=== PATIENT | male | born 1970 | race Caucasian/White ===

== ENCOUNTER 2021-05-07 09:10 | Emergency (ER) | payer OTHER ==
--- NOTE | 2021-05-07 09:52 | EDM.PDOC ---
ED HPI GENERAL MEDICAL PROBLEM - General Chief Complaint: Abdominal Pain Stated Complaint: ABDOMINAL PAIN Time Seen by Provider: 05/07/21 09:51 - History of Present Illness INITIAL COMMENTS - FREE TEXT/NARRATIVE: 50-year-old male presents the emergency room with abdominal pain. Patient has a 2-3 history of worsening abdominal pain. This is mostly noted in the lower abdomen. This is not associated with any nausea or vomiting. However he has not had a reasonable BM in 3 days he is trying MiraLAX and other medications for potential constipation. Patient has a significant history of diverticulitis on the left side in the past he has had a single episode this was treated with antibiotics as an outpatient. He has no history of abdominal surgeries. He is passing gas no significant nausea or vomiting. The patient is visiting the area from [facility] and he participates in a band. Lower Abdomen Pain Score (Numeric/FACES): 9 - Related Data Allergies Allergy/AdvReac Type Severity Reaction Status Date / Time No Known Allergies Allergy Verified 05/07/21 09:31 Home Meds: Home Meds Ciprofloxacin HCl [Cipro] 500 mg PO BID #20 tablet 05/07/21 [Rx] metroNIDAZOLE [Flagyl] 500 mg PO Q8H #30 tab 05/07/21 [Rx] Past Medical History Gastrointestinal History: Reports: Diverticulosis Endocrine/Metabolic History: Reports: Obesity/BMI 30+ - Infectious Disease History Infectious Disease History: Reports: Novel Coronavirus - Past Surgical History Musculoskeletal Surgical History: Reports: Arthroscopic Knee Other Musculoskeletal Surgeries/Procedures:: right and left arthroscopic knee Social & Family History - Tobacco Use Tobacco Use Status *Q: Current Every Day Tobacco User Years of Tobacco use: 5 Packs/Tins Daily: 0.2 - Recreational Drug Use Recreational Drug Use: No ED ROS GENERAL - Review of Systems Review Of Systems: See Below Constitutional: Reports: No Symptoms Respiratory: Reports: No Symptoms Cardiovascular: Reports: No Symptoms GI/Abdominal: Reports: Abdominal Pain, Constipation. Denies: Diarrhea, Nausea, Vomiting : Reports: No Symptoms, Urinary Retention Musculoskeletal: Reports: Muscle Pain Neurological: Reports: No Symptoms ED EXAM, GENERAL - Physical Exam Exam: See Below Exam Limited By: No Limitations General Appearance: Alert, No Apparent Distress Head: Atraumatic, Normocephalic Neck: Normal Inspection, Supple, Non-Tender. No: Lymphadenopathy (L), Lymphadenopathy (R) Respiratory/Chest: No Respiratory Distress, Lungs Clear, Normal Breath Sounds Cardiovascular: Regular Rate, Rhythm, No Edema, No Murmur GI/Abdominal: Normal Bowel Sounds, Other (He has significant discomfort more so in the right lower quadrant compared to the left lower quadrant but it is across the lower abdomen. He has rebound tenderness.) Back Exam: Normal Inspection. No: CVA Tenderness (L), CVA Tenderness (R) Neurological: Alert, Oriented, Normal Cognition Course - Vital Signs Last Recorded V/S: Last Vital Signs Temp 36.3 C 05/07/21 09:26 Pulse 74 05/07/21 09:26 Resp 16 05/07/21 09:26 BP 149/92 H 05/07/21 09:26 Pulse Ox 97 05/07/21 09:26 - Orders/Labs/Meds Orders: Active Orders 24 hr Category Date Time Status Lactated Ringers [Ringers, Lactated] 1,000 ml Med 05/07/21 10:00 Active IV ASDIRECTED Sodium Chloride 0.9% [Saline Flush] Med 05/07/21 11:06 Active 10 ml FLUSH ONETIME PRN Medication Orders Lactated Ringer's (Ringers, Lactated) 1,000 mls @ 150 mls/hr IV ASDIRECTED PATT Last Admin: 05/07/21 10:18 Dose: 150 mls/hr Documented by: TIANNA Sodium Chloride (Sodium Chloride 0.9% 10 Ml Syringe) 10 ml FLUSH ONETIME PRN PRN Reason: IV FLUSH Last Admin: 05/07/21 11:49 Dose: 10 ml Documented by: DESI Labs: Laboratory Tests 05/07/21 05/07/21 Range/Units 10:10 10:10 WBC 10.91 H (4.23-9.07) K/mm3 RBC 4.95 (4.63-6.08) M/mm3 Hgb 15.0 (13.7-17.5) gm/dl Hct 43.8 (40.1-51.0) % MCV 88.5 (79.0-92.2) fl MCH 30.3 (25.7-32.2) pg MCHC 34.2 (32.2-35.5) g/dl RDW Std Deviation 45.1 H (35.1-43.9) fL Plt Count 176 (163-337) K/mm3 MPV 10.6 (9.4-12.3) fl Neutrophils % (Manual) 75 H (40-60) % Band Neutrophils % 0 (0-10) % Lymphocytes % (Manual) 13 L (20-40) % Atypical Lymphs % 0 % Monocytes % (Manual) 10 (2-10) % Eosinophils % (Manual) 2 (0.8-7.0) % Basophils % (Manual) 0 L (0.2-1.2) Platelet Estimate Adequate RBC Morph Comment Normal Sodium 139 (136-145) mEq/L Potassium 3.6 (3.5-5.1) mEq/L Chloride 104 (98-107) mEq/L Carbon Dioxide 26 (21-32) mEq/L Anion Gap 12.6 (5-15) BUN 10 (7-18) mg/dL Creatinine 1.2 (0.7-1.3) mg/dL Est Cr Clr Drug Dosing 70.38 mL/min Estimated GFR (MDRD) > 60 (>60) mL/min BUN/Creatinine Ratio 8.3 L (14-18) Glucose 136 H (70-99) mg/dL Calcium 8.2 L (8.5-10.1) mg/dL Total Bilirubin 0.7 (0.2-1.0) mg/dL AST 19 (15-37) U/L ALT 22 (16-63) U/L Alkaline Phosphatase 47 (46-116) U/L Total Protein 7.0 (6.4-8.2) g/dl Albumin 3.2 L (3.4-5.0) g/dl Globulin 3.8 gm/dL Albumin/Globulin Ratio 0.8 L (1-2) Lipase 79 (73-393) U/L Meds: Medications Generic Name Dose Route Start Last Admin Trade Name Freq PRN Reason Stop Dose Admin Lactated Ringer's 1,000 mls @ 150 mls/hr 05/07/21 10:00 05/07/21 10:18 Ringers, Lactated IV 150 mls/hr ASDIRECTED PATT Administration Sodium Chloride 10 ml 05/07/21 11:06 05/07/21 11:49 Sodium Chloride 0.9% 10 Ml Syringe FLUSH 10 ml ONETIME PRN Administration IV FLUSH Discontinued Medications Generic Name Dose Route Start Last Admin Trade Name Freq PRN Reason Stop Dose Admin Diatrizoate Meglum/Diatrizoate Sod 120 ml 05/07/21 11:06 05/07/21 11:49 Diatrizoate Meglumine/Diatrizoate Sodium 37% 120 Ml Bottle PO 05/07/21 11:07 120 ml ONETIME ONE Administration Iopamidol 100 ml 05/07/21 11:06 05/07/21 11:49 Iopamidol 612 Mg/Ml 100 Ml Bottle IVPUSH 05/07/21 11:07 100 ml ONETIME ONE Administration Iopamidol 50 ml 05/07/21 11:31 05/07/21 11:49 Iopamidol 612 Mg/Ml 50 Ml Sdv IVPUSH 05/07/21 11:32 50 ml ONETIME ONE Administration - Radiology Interpretation Free Text/Narrative:: Labs show mildly elevated white count. CT shows evidence of a developing diverticulitis in the sigmoid colon there is also a small nodule in the left lung base measuring 4 mm radiology recommends considering CT study in 9 months for further evaluation. Patient will be started on outpatient ciprofloxacin and Flagyl Departure - Departure Time of Disposition: 13:11 Disposition: Home, Self-Care 01 Clinical Impression: Diverticulitis - Discharge Information Referrals: PCP,None [Ordering Only Provider] - Forms: ED Department Discharge Additional Instructions: Return to the emergency room with any questions problems or worsening symptoms. Follow-up in a healthcare facility in 3 to 4 days if not improving sooner if getting worse You have been started on 2 antibiotics these have been sent to the [place] pharmacy in the [facility] grocery store. In January 2022 you should have a follow-up imaging study to look at this possible nodule in the base of the left lung radiology recommends a CT at that time. Discussed this with your regular physician. Sepsis Event Note (ED) - Focused Exam Vital Signs: Vital Signs Temp Pulse Resp BP Pulse Ox 05/07/21 09:26 36.3 C 74 16 149/92 H 97 - My Orders Last 24 Hours: My Active Orders 05/07/21 10:00 Lactated Ringers [Ringers, Lactated] 1,000 ml IV ASDIRECTED 05/07/21 11:06 Sodium Chloride 0.9% [Saline Flush] 10 ml FLUSH ONETIME PRN - Assessment/Plan Last 24 Hours: My Active Orders 05/07/21 10:00 Lactated Ringers [Ringers, Lactated] 1,000 ml IV ASDIRECTED 05/07/21 11:06 Sodium Chloride 0.9% [Saline Flush] 10 ml FLUSH ONETIME PRN
[2021-05-07] MEDS ORDERED: Lactated Ringers 1,000 ML IV SCH (10:00)
[2021-05-07] MEDS ORDERED: Diatrizoate Meglumine/Diatrizoate Sodium 37% 120 ML Bottle PO ONE (11:06)
[2021-05-07] MEDS ORDERED: Sodium Chloride 0.9% 10 ML Syringe FLUSH PRN (11:06)
[2021-05-07] MEDS ORDERED: Iopamidol 612 MG/ML 100 ML Bottle IVPUSH ONE (11:06)
[2021-05-07] MEDS ORDERED: Iopamidol 612 MG/ML 50 ML SDV IVPUSH ONE (11:31)
--- NOTE | 2021-05-07 12:22 | CT ---
CT abdomen and pelvis Technique: Multiple axial sections were obtained from above the dome of the diaphragm inferiorly to the pubic symphysis. Intravenous and oral contrast were utilized. Delayed images were obtained through the bladder. Reconstructed coronal and sagittal images were obtained. Comparison: No prior CT abdomen or pelvis study is available. Findings: Inflammatory change is seen around the sigmoid colon in an area of diverticuli compatible with diverticulitis. Visualized lung bases show a small nodule within the left base measuring 4 mm. Liver contains a small low density finding within the right lobe measuring 4 mm which is too small to measure by Hounsfield units but most likely represents a minimal cyst. Spleen shows multiple small high density areas most likely representing calcified granulomas. Adrenal glands show no nodule. Pancreas shows no discrete abnormality. Gallbladder is mostly collapsed with no calcification seen to indicate calcified gallstones. Kidneys show symmetric contrast enhancement without hydronephrosis or mass. Abdominal aorta shows no aneurysm. No retroperitoneal adenopathy or mesenteric abnormalities are seen. No pelvic mass or adenopathy is noted. Delayed images show contrast within the distal ureters and within the bladder. Bone window settings were reviewed. Mild degenerative change is scattered within the spine. No acute osseous abnormality is appreciated. Impression: 1. Findings compatible with mild diverticulitis within the sigmoid colon. 2. Small nodule within the left lung base measuring [address] study in 9 months to further evaluate. This chest CT would occur in Jan, 2022. 3. Other incidental findings as noted above. Diagnostic code #9
== END 2021-05-07 13:33 | disposition home or self-care (01) ==
LOC: JD.ED 09:10
DX: K57.32 Diverticulitis of large intestine without perforation or abscess without bleeding (principal); E66.9 Obesity, unspecified; Z68.31 Body mass index [BMI] 31.0-31.9, adult; Z72.0 Tobacco use; Z86.16 Personal history of COVID-19
CPT/HCPCS: 36415; 74177; 80053; 83690; 85007; 85027; 99284; J7120; Q9963; Q9967